=== PATIENT | female | born 1955 | race African-American/Black ===

== ENCOUNTER 2020-02-18 09:52 | Outpatient (CLI) | payer OTHER, SELFPAY | END 2020-02-18 09:53 | disposition home or self-care (01) | LOC: ANHAUDIO 09:54 | DX: H90.3 Sensorineural hearing loss, bilateral (principal) | CPT/HCPCS: 92557; 92567 ==

== ENCOUNTER 2020-02-25 13:19 | Outpatient (RCR) | payer OTHER, SELFPAY | END 2020-02-25 23:59 | disposition home or self-care (01) | LOC: ANHAUDIO 13:19 | DX: Z46.1 Encounter for fitting and adjustment of hearing aid (principal) | CPT/HCPCS: V5014 ==

== ENCOUNTER 2021-07-14 08:22 | Outpatient (RCR) | payer OTHER, SELFPAY | END 2021-07-14 23:59 | disposition home or self-care (01) | LOC: ANHAUDIO 08:22 | PROVIDERS: Visit Provider Family Medicine | DX: Z46.1 Encounter for fitting and adjustment of hearing aid (principal) | CPT/HCPCS: 99199 ==